=== PATIENT | female | born 1980 | race Caucasian/White ===

== ENCOUNTER → 2023-05-21 12:15 | Outpatient (CLI) | payer OTHER, SELFPAY ==
--- NOTE | ~2023-05-21 | MM_ITS ---
EXAMINATION: MM screening damaso BI w nguyễn HISTORY: Screening mammogram TECHNIQUE: Craniocaudal and mediolateral oblique 3-D tomosynthesis images were obtained and synthetic 2-D images were generated. CAD analysis was submitted and interpreted. COMPARISON: No prior mammogram is available for comparison at this institution. BREAST PARENCHYMAL COMPOSITION: The breasts are extremely dense, which lowers the sensitivity of mamm ography. FINDINGS: RIGHT BREAST: No suspicious mass, calcification, or architectural distortion are identified to sugges t malignancy. LEFT BREAST: There is focal asymmetry in the posterior third of the lower inner left breast. IMPRESSION: 1. Focal asymmetry of the left breast which may represent the patient's baseline however no compariso n is currently available. 2. Comparison with prior mammograms is necessary. BI-RADS Category 0: Incomplete: Needs comparison with prior mammograms. Reviewed, dictated and finalized at location A. MACY CLINICAL COORDINATOR IMPRESSION: 1. Focal asymmetry of the left breast which may represent the patient's baselin e however no comparison is currently available. 2. Comparison with prior mammograms is necessary. BI-RADS Category 0: Incomplete: Needs comparison with prior mammograms.
== END ==
PROVIDERS: PCP Internal Medicine; Visit Provider Internal Medicine
DX: Z12.31 Encounter for screening mammogram for malignant neoplasm of breast (principal); R92.8 Other abnormal and inconclusive findings on diagnostic imaging of breast
CPT/HCPCS: 77063; 77067

== ENCOUNTER → 2023-07-06 08:49 | Outpatient (CLI) | payer OTHER, SELFPAY ==
--- NOTE | ~2023-07-06 | MMUS_ITS ---
EXAMINATION: MM diagnostic damaso LT w nguyễn, US breast LT limited HISTORY: Left breast focal asymmetry on screening mammogram TECHNIQUE: Additional 3-D tomosynthesis images of the left breast were performed and synthetic 2-D im ages were generated. CAD analysis was submitted and interpreted. High resolution limited left breast ultrasound was performed. COMPARISON: 05/21/2023, 10/25/2020 BREAST PARENCHYMAL COMPOSITION: The breasts are extremely dense, which lowers the sensitivity of mamm ography. FINDINGS: MAMMOGRAPHIC FINDINGS: There is a 9 mm oval, obscured, equal density mass in the posterior third of the lower inner breast a t the 7:00 location, 5 cm from the nipple. ULTRASOUND: There is a 1.2 x 0.6 cm oval, circumscribed, parallel, complex cystic and solid mass with no posterio r features or internal vascularity at the 7:00 location, 2.5 cm from the nipple corresponding to the mammographic finding in question. There is a 5 mm cyst at the 6:00 location, 2.5 cm from the nipple. There is a 5 mm x 2 mm oval, circumscribed, parallel, hypoechoic mass with no posterior features or i nternal vascularity at the 9:00 location near the nipple. IMPRESSION: 1. Probably benign left breast masses. 2. Recommend 6 month follow-up left diagnostic mammogram and ultrasound. BI-RADS category 3, probably benign findings. Reviewed, dictated and finalized at location A. ATING ROOM SURGICAL TECHNICIAN IMPRESSION: 1. Probably benign left breast masses. 2. Recommend 6 month follow-up left diagnostic mammogram and ultrasound. BI-RADS category 3, probably benign findings.
== END ==
PROVIDERS: PCP Internal Medicine; Visit Provider Internal Medicine
DX: R92.8 Other abnormal and inconclusive findings on diagnostic imaging of breast (principal)
CPT/HCPCS: 76642; 77061; 77065; G0279

== ENCOUNTER 2024-01-10 09:20 | Outpatient (CLI) | payer OTHER, SELFPAY ==
--- NOTE | ~2024-01-10 | MMUS_ITS ---
EXAMINATION: MM diagnostic damaso LT w nguyễn, US breast LT complete HISTORY: Follow-up left breast masses. TECHNIQUE: Additional 3-D tomosynthesis images of the left breast were performed and synthetic 2-D im ages were generated. CAD analysis was submitted and interpreted. High resolution complete left breast ultrasound was performed. COMPARISON: Comparison to multiple prior studies sequentially, with oldest reviewed study dated 10/25. BREAST PARENCHYMAL COMPOSITION: Dense: The breasts are extremely dense, which lowers the sensitivity of mammography. FINDINGS: MAMMOGRAPHIC FINDINGS: There are no suspicious masses, calcifications or architectural distortion in the left breast to sugg est malignancy. ULTRASOUND: Complete US of all 4 quadrants of the left breast and retroareolar region was reviewed. There are mul tiple simple and complicated cyst of the left breast. At 1:00, 2 cm from the nipple there is a 1 cm i ntramammary lymph node. At 3:00, 6 cm from the nipple there is an oval circumscribed parallel oriente d hypoechoic mass with low level internal echoes, subtle posterior acoustic enhancement measuring 6 m m. At 6:00, there is a septated cyst measuring 7 x 6 x 5 mm with posterior acoustic enhancement, like ly benign. At 9:00 in the subareolar location there is a 6 mm cyst. At 10:00, 2 cm from the nipple th ere is a 3 mm cyst. IMPRESSION: 1. Probable benign sonographic breast abnormalities. 2. Recommend 6 month follow-up Limited left breast ultrasound BI-RADS category 3, probably benign findings. Reviewed, dictated and finalized at location B. IMPRESSION: 1. Probable benign sonographic breast abnormalities. 2. Recommend 6 month follow-up Limited left breast ultrasound BI-RADS category 3, probably benign findings.
== END 2024-01-10 09:21 ==
LOC: MICIMG 09:21
PROVIDERS: PCP Internal Medicine; Visit Provider Internal Medicine
DX: N63.20 Unspecified lump in the left breast, unspecified quadrant (principal); R92.8 Other abnormal and inconclusive findings on diagnostic imaging of breast
CPT/HCPCS: 76641; 77061; 77065; G0279

== ENCOUNTER 2024-04-10 09:39 | Outpatient (CLI) | payer OTHER, SELFPAY ==
--- NOTE | ~2024-04-10 | MR_ITS ---
EXAMINATION: MR breast BI wo/w con INDICATION: Dense breast tissue TECHNIQUE: Axial VIBRANT pre and dynamic post contrast, Sagittal VIBRANT post contrast, Axial T2 STIR ASSET COMPARISON: 01/10/2024 CONTRAST: Multihance, 15 cc BREAST COMPOSITION: Extreme fibroglandular tissue FINDINGS: RIGHT BREAST: There is mild background parenchymal enhancement. No abnormal enhancement is present af ter contrast administration. Several breast cysts are present, largest measuring 1.6 cm in diameter. No pathologically enlarged axillary or internal mammary lymph nodes are identified. LEFT BREAST: There is mild background parenchymal enhancement. No abnormal enhancement is present aft er contrast administration. Several subcentimeter breast cysts are present. No pathologically enlarge d axillary or internal mammary lymph nodes are identified. IMPRESSION: No evidence for malignancy. BI-RADS Category 1: Negative Reviewed, dictated and finalized at location .
== END 2024-04-10 09:40 | disposition home or self-care (01) ==
PROVIDERS: PCP Internal Medicine; Visit Provider Surgery
DX: R92.343 Mammographic extreme density, bilateral breasts (principal); R92.8 Other abnormal and inconclusive findings on diagnostic imaging of breast; N63.24 Unspecified lump in the left breast, lower inner quadrant; N63.25 Unspecified lump in the left breast, overlapping quadrants
CPT/HCPCS: 77049; A9577; C8908

== ENCOUNTER 2024-09-26 08:49 | Outpatient (CLI) | payer OTHER, SELFPAY ==
--- NOTE | ~2024-09-26 | MMUS_ITS ---
EXAMINATION: MM diagnostic damaso BI w nguyễn, US breast BI complete HISTORY: Palpable lump left breast. Previous normal MRI of the breasts. Probable benign masses seen o n previous ultrasound. TECHNIQUE: Additional 3-D tomosynthesis images of the breasts were performed and synthetic 2-D images were generated. CAD analysis was submitted and interpreted. High resolution complete bilateral breas t ultrasound was performed. COMPARISON: Comparison to multiple prior studies sequentially, with oldest reviewed study dated 10/25. BREAST PARENCHYMAL COMPOSITION: Dense: The breasts are extremely dense, which lowers the sensitivity of mammography. FINDINGS: MAMMOGRAPHIC FINDINGS: There are no suspicious masses, calcifications or architectural distortion in either breast to sugges t malignancy. ULTRASOUND: Complete US of all 4 quadrants of the breast/s and retroareolar region was reviewed. Right breast: At 8:00, 3 cm from the nipple there is an oval hypoechoic 8mm mass with parallel orient ation, no posterior features and no internal vascularity, likely benign. At 8:00, 4 cm from the nippl e there is a small cyst. At 9:00, 4 cm from the nipple there is a 9 mm cyst. At 10:00, 6 cm from the nipple there is an intramammary lymph node measuring 11 mm. Left breast: At 2:00, 5 cm from the nipple there is a millimeter minimally complicated cyst with low level internal echoes. At 3:00, 4 cm from the nipple there is an oval hypoechoic 8 mm mass with sugge stion of an echogenic hilum or septation. No internal vascularity or posterior shadowing. At 6:00, 3 cm from the nipple there is a slightly irregular shaped 3 mm mass with heterogeneous internal echotex ture, no significant posterior shadowing and no internal vascularity. This is not significantly horowitz ed compared with prior ultrasound dated 01/10/2024. IMPRESSION: 1. Stable likely benign left breast mass 6:00, 3 cm from the nipple. Probable benign left breast mass at 3:00, 4 cm from. No evidence for malignancy in the right breast. 2. Recommend 6 month follow-up Limited left breast ultrasound BI-RADS category 3, probably benign findings. Reviewed, dictated and finalized at location B. IMPRESSION: 1. Stable likely benign left breast mass 6:00, 3 cm from the nipple. Probable b enign left breast mass at 3:00, 4 cm from. No evidence for malignancy in the ri ght breast. 2. Recommend 6 month follow-up Limited left breast ultrasound BI-RADS category 3, probably benign findings.
== END 2024-09-26 08:50 | disposition home or self-care (01) ==
LOC: MICIMG 08:50
PROVIDERS: PCP Surgery; Visit Provider Surgery
DX: R92.8 Other abnormal and inconclusive findings on diagnostic imaging of breast (principal); N63.25 Unspecified lump in the left breast, overlapping quadrants; R92.343 Mammographic extreme density, bilateral breasts; N63.24 Unspecified lump in the left breast, lower inner quadrant
CPT/HCPCS: 76641; 77062; 77066; G0279

== ENCOUNTER 2025-03-30 11:44 | Outpatient (CLI) | payer OTHER, SELFPAY ==
--- NOTE | ~2025-03-30 | US_ITS ---
Clinical history:Unspecified lump in the left breast. EXAM:Ultrasound breast left limited TECHNIQUE:Multiple static grayscale images and color Doppler images were obtained of the areas of concern in the left breast. Comparisons:Bilateral breast ultrasound 09/26/2024 FINDINGS: There is a 7 x 3 x 7 mm hypoechoic cyst versus solid mass in the left breast at the 3:00 position 4 cm from the nipple. The finding is wider than tall. No internal color Doppler flow. No posterior acoustic shadowing. The finding is probably benign. There is a 3 x 3 x 3 mm hypoechoic cyst versus solid mass in the left breast at the 6:00 position 3 cm from the nipple. The finding is wider than tall. No internal color Doppler flow. No posterior acoustic shadowing. The finding is probably benign. There is a 4 x 4 x 3 mm hypoechoic cyst versus solid mass in the left breast at the 7:00 position to have centimeters from the nipple middle depth. No internal color Doppler flow. No posterior acoustic shadowing. The finding is probably benign. There is a 3 x 4 x 2 mm hypoechoic cyst versus solid mass in the left breast at the 9:00 position in the retroareolar region. No internal color Doppler flow. No posterior acoustic shadowing. The finding is probably benign. IMPRESSION: 1. Probably benign findings in the left breast. A diagnostic left breast ultrasound and a diagnostic left breast mammogram in 6 months is recommended. BI-RADS 3-Probably benign-Short interval follow-up suggested. Reviewed, dictated and finalized at location Q. IMPRESSION: 1. Probably benign findings in the left breast. A diagnostic left breast ultras ound and a diagnostic left breast mammogram in 6 months is recommended. BI-RADS 3-Probably benign-Short interval follow-up suggested.
== END 2025-03-30 11:45 | disposition home or self-care (01) ==
LOC: MICIMG 11:45
PROVIDERS: PCP Surgery; Visit Provider Surgery
DX: N63.25 Unspecified lump in the left breast, overlapping quadrants (principal); N63.24 Unspecified lump in the left breast, lower inner quadrant; R92.8 Other abnormal and inconclusive findings on diagnostic imaging of breast; R92.343 Mammographic extreme density, bilateral breasts
CPT/HCPCS: 76642